=== PATIENT | male | born 1945 | race Caucasian/White ===

== ENCOUNTER 2017-07-02 20:49 | Emergency (ER) | payer MEDICARE ==
[~2017-07-02] VITALS: Ht 180.3 cm; Wt 70.3 kg
[~2017-07-02 20:49] MED LIST: LISINOPRIL5 MG ORAL; NITROGLYCERIN0.4 MG SL
[2017-07-02 21:06] VITALS: BP 120/78
[2017-07-02] MEDS ORDERED: BENADRYL25 MG ORAL (21:14)
[2017-07-02] MEDS ORDERED: PREDNISONE20 MG ORAL (21:14)
[2017-07-02] MEDS ORDERED: Solu-MEDROL 125mg Inj IVP ONE (21:15)
[2017-07-02] MEDS ORDERED: DiphenhydrAMINE 50mg/ml Inj IVP ONE (21:15)
--- NOTE | 2017-07-02 21:15 | Emergency Room Report ---
History of Present Illness General Chief Complaint: Allergic Reaction Source: Patient, EMS Present Illness HPI Is a 72-year-old male with a history CAD and previous KS. He said he has an allergy to shellfish in the past. He presents with allergic reaction shortness of breath. Onset was about 2 hours ago. He ate calamari tonight and shortly afterward has swelling of his lips and face. She has shortness of breath. No fever or chills. Was itching. No nausea no vomiting. His daughter gave him Claritin. He slightly better now. No other complaint. Allergies: Coded Allergies: PENICILLINS (Verified Allergy, Unknown, 07/02/17) Patient History Past Medical History: see triage record, old chart reviewed, HTN, [place], CAD Past Surgical History: other Pertinent Family History: none Social History: Denies: smoking Immunizations: other Reviewed Nursing Documentation: PMH: Agreed, PSxH: Agreed Nursing Documentation-PMH Past Medical History: No History, Except For Hx Cardiac Problems: Yes - [place] 2014 Hx Hypertension: Yes Review of Systems Eye: Denies: eye pain, blurred vision ENT: Denies: ear pain, nose congestion, throat swelling Respiratory: Denies: cough, shortness of breath Cardiovascular: Denies: chest pain, palpitations Gastrointestinal: Denies: abdominal pain, diarrhea, nausea, vomiting Musculoskeletal: Denies: back pain, joint pain Skin: Reports: rash Neurological: Denies: headache, numbness Endocrine: Denies: increased thirst, increased urine Hematologic/Lymphatic: Denies: easy bruising All Other Systems: negative except mentioned in HPI Physical Exam Vital Signs Date Time Temp Pulse Resp B/P (MAP) Pulse Ox O2 Delivery O2 Flow Rate FiO2 07/02/17 20:39 97.3 74 16 120/78 98 Room Air vitals normal Sp02 EP Interpretation: reviewed, normal General Appearance: well appearing, no apparent distress, alert Head: normocephalic, atraumatic Eyes: bilateral eye PERRL, bilateral eye EOMI ENT: hearing grossly normal, normal pharynx, other - Mild edema to his upper eyelids. Mild edema to the lips. No tongue edema. Neck: full range of motion, supple, no meningismus, other - No stridor Respiratory: chest non-tender, lungs clear, normal breath sounds Cardiovascular #1: regular rate, rhythm, no murmur Gastrointestinal: normal bowel sounds, non tender, no mass, no organomegaly, no bruit, non-distended Musculoskeletal: back normal, gait/station normal, normal range of motion Psychiatric: mood/affect normal Skin: warm/dry Medical Decision Making Diagnostic Impression: Primary Impression: Allergic reaction Qualified Codes: T78.40XA - Allergy, unspecified, initial encounter ER Course Patient with allergic reaction. No evidence of anaphylactic shock. No evidence of rest or distress. No wheezing. No stridor. Better after Benadryl and Solu-Medrol. We'll discharge home. Last Vital Signs Date Time Temp Pulse Resp B/P (MAP) Pulse Ox O2 Delivery O2 Flow Rate FiO2 07/02/17 21:06 97.3 16 120/78 98 Room Air 07/02/17 20:39 74 Status: improved Disposition: HOME, SELF-CARE Condition: Stable Scripts Prednisone* (PREDNISONE*) 20 Mg Tablet 40 MG ORAL DAILY, #6 TAB Prov: SRIKANTH PHELPS M.D. 07/02/17 Diphenhydramine Hcl* (BENADRYL*) 25 Mg Capsule 50 MG ORAL Q6H Y for Itching, #30 CAP Prov: SRIKANTH PHELPS M.D. 07/02/17 Patient Instructions: Food Allergy Additional Instructions: Followup with your DrJacobo in 2 to 3 days if not better. You may benefit from referral to see an blocker and polisher for hours testing. Return if symptom worsen. SRIKANTH PHELPS M.D. Jul 02, 2017 21:15
[2017-07-02 22:13] VITALS: BP 120/78
== END 2017-07-02 22:14 | disposition home or self-care (01) ==
LOC: EDBD 20:49 → EMR 21:12
DX: T78.40XA Allergy, unspecified, initial encounter (principal); X58.XXXA Exposure to other specified factors, initial encounter; I10 Essential (primary) hypertension; I25.2 Old myocardial infarction; Z88.0 Allergy status to penicillin
CPT/HCPCS: 96374; 96375; 99284; J1200; J2930